=== PATIENT | female | born 1975 | race Two or more races ===

== ENCOUNTER 2021-04-14 10:17 | Outpatient (CLI) | payer OTHER | END 2021-04-14 11:00 | disposition home or self-care (01) | LOC: SONOGRAMA 10:17 | PROVIDERS: ATTEND Pathology Anatomic Pathology & Clinical Pathology | DX: N63.20 Unspecified lump in the left breast, unspecified quadrant (principal) ==

== ENCOUNTER 2021-11-25 07:32 | Outpatient (CLI) | payer OTHER | END 2021-11-25 07:33 | disposition home or self-care (01) | LOC: SONOGRAMA 07:32 | PROVIDERS: ATTEND Surgery | DX: N60.11 Diffuse cystic mastopathy of right breast (principal); N60.12 Diffuse cystic mastopathy of left breast ==

== ENCOUNTER 2023-04-06 08:05 | Outpatient (CLI) | payer OTHER | END 2023-04-06 08:18 | disposition home or self-care (01) | LOC: MAMO-SONO 08:05 | PROVIDERS: ATTEND Surgery | DX: N60.11 Diffuse cystic mastopathy of right breast (principal); N60.12 Diffuse cystic mastopathy of left breast; Z12.31 Encounter for screening mammogram for malignant neoplasm of breast ==

== ENCOUNTER 2024-03-28 10:03 | Emergency (ER) | payer OTHER ==
[~2024-03-28] VITALS: Ht 144.8 cm; Wt 57.2 kg
[2024-03-28] MEDS ORDERED: CHILDREN'S ASPI81 MG PO (10:29)
[2024-03-28] MEDS ORDERED: TETANUS & DIPHTHERIA TOX,ADULT 0.5 ML VIAL IM ONE (11:30)
== END 2024-03-28 11:51 | disposition home or self-care (01) ==
LOC: ER 10:04
DX: S61.219A Laceration without foreign body of unspecified finger without damage to nail, initial encounter (principal); W26.0XXA Contact with knife, initial encounter; Y93.89 Activity, other specified; Y92.89 Other specified places as the place of occurrence of the external cause; Y99.8 Other external cause status; Z91.018 Allergy to other foods

== ENCOUNTER 2024-04-10 08:49 | Emergency (ER) | payer OTHER ==
[~2024-04-10] VITALS: Ht 147.3 cm; Wt 57.2 kg
[~2024-04-10 08:49] MED LIST: CHILDREN'S ASPI81 MG PO
== END 2024-04-10 09:39 | disposition home or self-care (01) ==
LOC: ER 08:51
DX: Z48.02 Encounter for removal of sutures (principal); Z91.018 Allergy to other foods

== ENCOUNTER 2024-04-11 08:04 | Outpatient (CLI) | payer OTHER | END 2024-04-11 08:24 | disposition home or self-care (01) | LOC: MAMO-SONO 08:04 | PROVIDERS: ATTEND Surgery | DX: N60.11 Diffuse cystic mastopathy of right breast (principal); N60.12 Diffuse cystic mastopathy of left breast ==

== ENCOUNTER → 2024-12-19 06:07 | Outpatient (CLI) | payer OTHER ==
[2024-12-19 07:07] LABS: HEMATOCRIT 41.1 % (36.0-45.00); HEMOGLOBIN 13.6 g/dL (12.0-15.00); MEAN CELL VOLUME 85.9 fL (80.00-100.00); MEAN CORPUSCULAR HEMOGLOBIN 28.6 pg (27.00-32.0); MEAN CORPUSCULAR HGB CONC 33.2 g/dl (32.0-36.0); PLATELET COUNT 739 K/uL (150-450); RED BLOOD COUNT 4.78 M/uL (4.00-6.00)
[2024-12-19 07:45] LABS: % SATURACION 26.2 % (15-50); BILIRUBIN TOTAL 0.64 mg/dL (0.3-1.2); CALCIUM 9.2 mg/dL (8.5-10.1); CREATININE SERUM 0.66 mg/dL (0.55-1.02); FERRITIN 20.5 NG/ML (8-252); GFR 94.42; GLOBULINA 3.2 G/DL (2.4-3.5); POTASSIUM 4.36 mEq/L (3.5-5.1); TOTAL PROTEIN 7.2 gm/dL (6.4-8.2)
[2024-12-19 11:58] LABS: FOLIC ACID 17.51 ng/ml (4.78-20)
[2024-12-20 09:07] LABS: CA 125 12.7 U/mL (0.0-38.1)
[2024-12-20 11:08] LABS: MANUAL PLATELET COUNT 762; PLATELET ESTIMATE INCREASED (NORMAL)
== END | disposition home or self-care (01) ==
LOC: LAB 06:07
PROVIDERS: ATTEND Internal Medicine Hematology & Oncology
DX: D47.3 Essential (hemorrhagic) thrombocythemia (principal); D50.8 Other iron deficiency anemias; R79.9 Abnormal finding of blood chemistry, unspecified; I10 Essential (primary) hypertension; R74.02 Elevation of levels of lactic acid dehydrogenase [LDH]; K76.89 Other specified diseases of liver; C50.919 Malignant neoplasm of unspecified site of unspecified female breast; R97.8 Other abnormal tumor markers; R97.0 Elevated carcinoembryonic antigen [CEA]

== ENCOUNTER 2025-02-28 06:19 | Outpatient (CLI) | payer OTHER ==
[2025-02-28 06:52] LABS: BASO % 1.5 % (0.1-1.2); EOS # 0.23 (0.04-0.54); EOS % 2.8 % (0.7-7.0); LYMPH # 2.80 (1.18-3.74); LYMPH % 34.2 % (19.3-53.1); MEAN PLATELET VOLUME 10.70 fl (9.4-12.4); MONO # 0.54 (0.24-0.82); MONO % 6.6 % (4.7-12.5); NEUT # 4.47 (1.56-6.13); NEUT % 54.7 % (34.0-71.1); RED CELL DISTRIBUTION WIDTH 16.3 % (11.6-14.4)
== END 2025-02-28 06:22 | disposition home or self-care (01) ==
LOC: LAB 06:19
PROVIDERS: ATTEND Internal Medicine Hematology & Oncology
DX: D47.3 Essential (hemorrhagic) thrombocythemia (principal)

== ENCOUNTER 2025-03-29 06:24 | Outpatient (CLI) | payer OTHER ==
[2025-03-29 07:51] LABS: BASO % 1.1 % (0.1-1.2); EOS # 0.18 (0.04-0.54); EOS % 2.3 % (0.7-7.0); LYMPH # 2.67 (1.18-3.74); LYMPH % 33.6 % (19.3-53.1); MEAN PLATELET VOLUME 11.20 fl (9.4-12.4); MONO # 0.47 (0.24-0.82); MONO % 5.9 % (4.7-12.5); NEUT # 4.52 (1.56-6.13); NEUT % 56.8 % (34.0-71.1); RED CELL DISTRIBUTION WIDTH 15.4 % (11.6-14.4)
[2025-03-29 08:29] LABS: ALT/SGPT 18.0 U/L (12-78); AST/SGOT 10.0 U/L (15-37); BILIRUBIN TOTAL 0.73 mg/dL (0.3-1.2); BUN CREA RATIO 19.0 (7.0-25.0); CREATININE SERUM 0.72 mg/dL (0.55-1.02); GFR 85.4; GLOBULINA 3.3 G/DL (2.4-3.5); GLUCOSE FASTING 90.0 mg/dL (65-100); LDH 210.0 U/L (84-246); OSMOLALITY SERUM 276.0 MOSM/KG (275-295); T4 FREE 1.06 NG/ML (0.76-1.46); TSH 1.73 uIU/mL (0.358-3.74)
[2025-03-30 09:08] LABS: ANTI THYROID PEROXIDASE < 9 IU/mL (0-34)
[2025-04-02 01:06] LABS: g6pd quant 209 (127-427)
[2025-04-04 13:08] LABS: PARIETAL CELL ANTIBODIES 1.0 Units (0.0-20.0)
== END 2025-03-29 06:26 | disposition home or self-care (01) ==
LOC: LAB 06:24
PROVIDERS: ATTEND Internal Medicine Hematology & Oncology
DX: D50.8 Other iron deficiency anemias (principal); I10 Essential (primary) hypertension; R74.02 Elevation of levels of lactic acid dehydrogenase [LDH]; K76.89 Other specified diseases of liver; R79.9 Abnormal finding of blood chemistry, unspecified; D63.8 Anemia in other chronic diseases classified elsewhere; D55.0 Anemia due to glucose-6-phosphate dehydrogenase [G6PD] deficiency; D51.1 Vitamin B12 deficiency anemia due to selective vitamin B12 malabsorption with proteinuria; D51.0 Vitamin B12 deficiency anemia due to intrinsic factor deficiency; E03.8 Other specified hypothyroidism; E06.3 Autoimmune thyroiditis; D47.3 Essential (hemorrhagic) thrombocythemia; Z80.51 Family history of malignant neoplasm of kidney; Z80.8 Family history of malignant neoplasm of other organs or systems; Z86.0100 Personal history of colon polyps, unspecified

== ENCOUNTER 2025-04-16 07:07 | Outpatient (CLI) | payer OTHER | END 2025-04-16 07:18 | disposition home or self-care (01) | LOC: MAMO-SONO 07:07 | PROVIDERS: ATTEND Surgery | DX: N60.11 Diffuse cystic mastopathy of right breast (principal); N60.12 Diffuse cystic mastopathy of left breast ==

== ENCOUNTER → 2025-07-23 06:23 | Outpatient (CLI) | payer OTHER ==
[2025-07-23 07:48] LABS: BASO % 1.2 % (0.1-1.2); EOS # 0.21 (0.04-0.54); EOS % 2.8 % (0.7-7.0); LYMPH # 2.67 (1.18-3.74); LYMPH % 35.5 % (19.3-53.1); MEAN PLATELET VOLUME 11.00 fl (9.4-12.4); MONO # 0.49 (0.24-0.82); MONO % 6.5 % (4.7-12.5); NEUT # 4.04 (1.56-6.13); NEUT % 53.6 % (34.0-71.1); RED CELL DISTRIBUTION WIDTH 15.1 % (11.6-14.4)
[2025-07-23 08:40] LABS: ALT/SGPT 15.0 U/L (12-78); AST/SGOT 11.0 U/L (15-37); BILIRUBIN TOTAL 0.61 mg/dL (0.3-1.2); BUN CREA RATIO 15.0 (7.0-25.0); CHOL HDL RATIO 5.2 (0-5.0); CREATININE SERUM 0.74 mg/dL (0.55-1.02); FE 58.0 ug/dl (50-170); GFR 82.74; GLOBULINA 3.4 G/DL (2.4-3.5); GLUCOSE FASTING 88.0 mg/dL (65-100); HDL 49.0 mg/dl (40-60); LDH 219.0 U/L (84-246); LDL 177.0 mg/dl (0-130); OSMOLALITY SERUM 276.0 MOSM/KG (275-295); VLDL 26.0 (0-39)
[2025-07-24 10:19] LABS: FOLIC ACID 18.49 ng/ml (4.78-20)
== END | disposition home or self-care (01) ==
LOC: LAB 06:23
PROVIDERS: ATTEND Internal Medicine Hematology & Oncology
DX: D50.8 Other iron deficiency anemias (principal); I10 Essential (primary) hypertension; R74.02 Elevation of levels of lactic acid dehydrogenase [LDH]; K76.89 Other specified diseases of liver; R79.9 Abnormal finding of blood chemistry, unspecified; E53.8 Deficiency of other specified B group vitamins; K51.40 Inflammatory polyps of colon without complications; K90.89 Other intestinal malabsorption; D47.3 Essential (hemorrhagic) thrombocythemia; Z80.51 Family history of malignant neoplasm of kidney; Z80.8 Family history of malignant neoplasm of other organs or systems; Z86.0100 Personal history of colon polyps, unspecified; I11.0 Hypertensive heart disease with heart failure; E78.5 Hyperlipidemia, unspecified